=== PATIENT | male | born 1970 | race Caucasian/White ===

== ENCOUNTER 2017-04-18 03:25 | Emergency (ER) | payer OTHER ==
[2017-04-18 05:00] LABS: HEMOGLOBIN 14.5 gm/dl (14.0-17.5); RED BLOOD COUNT 4.7 M/UL (4.20-5.50); WHITE BLOOD COUNT 5.9 K/UL (4.5-11.0)
[2017-04-18 05:17] LABS: BUN/CREATININE RATIO 13 (0-10)
== END 2017-04-18 10:30 | disposition home or self-care (01) ==
LOC: ER1 03:25
PROVIDERS: Physician Assistant
DX: F19.10 Other psychoactive substance abuse, uncomplicated (principal)
CPT/HCPCS: 36415; 70450; 72125; 80053; 80307; 81001; 85025; 96374; 99284; G0480; J2310; J7030

== ENCOUNTER 2021-06-27 12:46 | Inpatient (IN) | payer OTHER ==
[~2021-06-27] VITALS: Ht 172.7 cm; Wt 99.3 kg
[2021-06-27 14:03] LABS: HEMOGLOBIN 13.9 gm/dl (14.0-17.5); RED BLOOD COUNT 4.57 M/UL (4.20-5.50); WHITE BLOOD COUNT 11.4 K/UL (4.5-11.0)
[2021-06-27 14:23] LABS: BUN/CREATININE RATIO 11 (0-10)
[2021-06-28 04:30] LABS: WHITE BLOOD COUNT 7.4 K/UL (4.5-11.0)
[2021-06-28 08:21] LABS: BUN/CREATININE RATIO 9 (0-10)
[2021-06-29 06:33] LABS: HEMOGLOBIN 11.7 gm/dl (14.0-17.5); RED BLOOD COUNT 3.89 M/UL (4.20-5.50); WHITE BLOOD COUNT 7.9 K/UL (4.5-11.0)
[2021-06-29 06:52] LABS: BUN/CREATININE RATIO 9 (0-10)
[2021-06-30 04:58] LABS: BUN/CREATININE RATIO 10 (0-10)
[2021-06-30 05:06] LABS: HEMOGLOBIN 11.8 gm/dl (14.0-17.5); RED BLOOD COUNT 3.98 M/UL (4.20-5.50)
[2021-06-30 05:08] LABS: WHITE BLOOD COUNT 5.8 K/UL (4.5-11.0)
--- NOTE | 2021-06-30 12:34 | NUR ---
PTS PICC LINE DRESSING CHANGED DUE TO OOZING OF BLOOD SHORTLY AFTER INSERTION.
[2021-07-01 04:33] LABS: BUN/CREATININE RATIO 9 (0-10)
[2021-07-01] MEDS ORDERED: ROCEPHIN 1 GM AD1 GM IV (09:52)
[2021-07-01] MEDS ORDERED: VICODIN HP 10-1 EACH PO (10:19)
--- NOTE | 2021-07-01 11:33 | NUR ---
dressing change to left knee done at this time
--- NOTE | 2021-07-01 16:14 | NUR ---
Report called to Hafsa at [facility] at this time.
== END 2021-07-01 16:45 | disposition home or self-care (01) | DRG 501 ==
LOC: ER1 12:46 → M/S 16:06 → CDU 16:06 → M/S 06-28 13:50
PROVIDERS: Orthopaedic Surgery; Physician Assistant; Physician Assistant Medical; ADMIT Internal Medicine
PROC: 0MBP0ZZ Excision of Left Knee Bursa and Ligament, Open Approach (ICD-10-PCS; principal; 2021-06-28 08:00)
PROC: 02HV33Z Insertion of Infusion Device into Superior Vena Cava, Percutaneous Approach (ICD-10-PCS; 2021-06-30)
DX: M71.162 Other infective bursitis, left knee (principal); E87.2 Acidosis; L03.116 Cellulitis of left lower limb; Z20.822 Contact with and (suspected) exposure to COVID-19; B95.4 Other streptococcus as the cause of diseases classified elsewhere; F17.210 Nicotine dependence, cigarettes, uncomplicated; D50.9 Iron deficiency anemia, unspecified; Z93.3 Colostomy status; Z83.3 Family history of diabetes mellitus; Z80.1 Family history of malignant neoplasm of trachea, bronchus and lung; Z80.0 Family history of malignant neoplasm of digestive organs; Z79.899 Other long term (current) drug therapy; Z79.2 Long term (current) use of antibiotics
CPT/HCPCS: 36415; 73564; 80048; 80053; 80202; 83036; 83540; 83550; 83605; 83735; 84100; 85025; 85027; 85610; 85652; 86140; 87040; 87070; 87077; 87205; 96374; 96375; 99284; C1751; J0690; J0696; J1100; J2001; J2250; J2270; J2405; J2543; J2704; J3010; J3370; J7030; J7070; J7120; U0002